=== PATIENT | female | born 1985 | race Caucasian/White ===

== ENCOUNTER 2017-04-16 10:39 | Day surgery (SDC) | payer OTHER ==
[~2017-04-16 10:39] MED LIST: Buffered Lidocaine 1% SYRIN* 5 ML/SYR SYRINGE ONE; Famotidine IV* 10 MG/ML 2 ML (20 mg) IV ONE; Famotidine IV* 10 MG/ML 2 ML (20 mg) ONE; Metoclopramide TAB* 10 MG ONE; Metoclopramide TAB* 10 MG PO ONE
[2017-04-16] MEDS ORDERED: Bupivacaine 0.5% W/EPI SDV* 30 ML VIAL ONE (12:12)
[2017-04-16] MEDS ORDERED: Midazolam* 1 MG/ML 5 ML VIAL (5 MG) ONE (12:16)
[2017-04-16] MEDS ORDERED: Cisatracurium* 2 MG/ML MDV 5 ML ONE (12:16)
[2017-04-16] MEDS ORDERED: Ketorolac INJ* 30 MG/ML 1 ML VIAL ONE (12:16)
[2017-04-16] MEDS ORDERED: fentaNYL* 50 MCG/ML 2 ML VIAL (100 MCG VIAL) ONE ×3 (12:16→14:29)
[2017-04-16] MEDS ORDERED: Lidocaine 2% PF * 5 ML VIAL ONE (12:16)
[2017-04-16] MEDS ORDERED: KETAMINE HCL* 50 MG/ML 10 ML VIAL ONE (12:16)
[2017-04-16] MEDS ORDERED: Dexamethasone IV* 4 MG/ML 1 ML (4 MG) ONE (12:16)
[2017-04-16] MEDS ORDERED: Ondansetron INJ* 2 MG/ML VIAL ONE (12:16)
[2017-04-16] MEDS ORDERED: Propofol* 10 MG/ML 20 ML BTL IV PUSH ONE (12:16)
[2017-04-16] MEDS ORDERED: Scopolamine 1.5 mg* PATCH ONE (12:37)
[2017-04-16] MEDS ORDERED: DiMENhydriNATE IV* 50 MG/ML VIAL IV PUSH PRN (13:32)
[2017-04-16] MEDS ORDERED: Ondansetron INJ* 2 MG/ML VIAL IV PRN (13:32)
[2017-04-16] MEDS ORDERED: Glycopyrrolate IV* 0.2 MG/ML 1 ML VIAL ONE (13:37)
[2017-04-16] MEDS ORDERED: Neostigmine Methylsulfate* 2 MG/2 ML SYRINGE ONE (13:37)
[2017-04-16] MEDS: fentaNYL* 50 MCG/ML 2 ML VIAL (100 MCG VIAL) IV PRN ×4 (13:59→15:02)
[2017-04-16] MEDS ORDERED: oxyCODONE/Acetamin 5/325 MG* TAB ONE ×2 (14:13→14:29)
[2017-04-16] MEDS: oxyCODONE/Acetamin 5/325 MG* TAB PO PRN ×2 (14:14→14:31)
[2017-04-16 15:57] VITALS: BP 142/89
[2017-04-16] MEDS ORDERED: Ondansetron ODT TAB* 4 MG ONE (16:20)
[2017-04-16] MEDS ORDERED: Ondansetron TAB* 4 MG PO ONE (16:28)
--- NOTE | 2017-04-17 04:13 | OP ---
OPERATIVE REPORT: DATE OF OPERATION: 04/16/17 DATE OF : 81 SURGEON: Bandar Dupont MD HAND I CUTTER: Stephanie Cole, certified nurse practitioner. ANESTHESIA: General anesthetic with endotracheal intubation. PRE-OP DIAGNOSIS: The patient desires permanent surgical sterilization. POST-OP DIAGNOSIS: The patient desires permanent surgical sterilization. OPERATIVE PROCEDURE: Bilateral laparoscopic tubal ligation with Filshie clips. ESTIMATED BLOOD LOSS: None. SPECIMENS: There were no specimens. FLUIDS: She received 1500 cc of IV crystalloid fluid. URINE OUTPUT: Clear. LAPAROSCOPIC FINDINGS: Revealed a normal uterus, bowel, and bladder with normal tubes and ovaries b ilaterally. COMPLICATIONS: There were no complications during this procedure. DESCRIPTION OF PROCEDURE: The patient was taken to the operating room, where she was identified. S he was placed on the operating table, where a general anesthetic with endotracheal intubation was ob tained without difficulty. She was then placed in the dorsal lithotomy position, prepped and draped in the normal sterile fashion. Attention was then brought to the patient's perineum, where the blad wu was catheterized with a Azul catheter and drained of urine. A speculum was inserted into the p atient's vagina and was unable to introduce a uterine manipulator due to stenotic cervix; therefore, a sponge stick was left in the vagina and the speculum was then removed. Attention was then charly t on to the patient's abdomen, where a 1-cm infraumbilical skin incision was made with a knife and c arried through to the underlying layer of fascia. The fascia was then grasped with the Hortencia clamp s, brought up through the incision, and incised with a knife and extended about 1 cm laterally with a Swati clamp. The Hortencia clamps on the fascia were then replaced with 0-Polysorb suture and throug h this incision, a 10-mm blunt trocar was introduced. The balloon and trocar was insufflated. The 0 Polysorb sutures were then attached to the trocar. The patient's abdomen was then insufflated wit h CO2 gas. A 10-mm laparoscope was inserted through this trocar and survey of the patient's intraab dominal and pelvic organs were noted as above. At this point, the patient was then placed on the sl ight Trendelenburg position. A second trocar was introduced 4 cm above the symphysis pubis. Throug h this trocar, a Filshie clip applicator was introduced and Filshie clips were then applied to the f allopian tubes ampullary portion bilaterally with good blanching of the fallopian tubes and good cov erage of circumferentially around the tube with the Filshie clip. At this point, all the instrument s were removed from the patient's abdomen as well as the gas was removed. The umbilical incision of the fascia was closed with 0-Polysorb suture in a running fashion. The skin were then closed with 4-0 Monocryl stitches subcuticularly. All the instruments were removed from the patient's vagina. The sponge, lap, and needle counts were correct x2. She was then transferred to the recovery room a aj in stable condition. [id number]/[facility] #: [id number]
[2017-04-17] MEDS ORDERED: Scopolamine 1.5 mg* PATCH TRANSDERM ONE (06:00)
[2017-04-20] MEDS ORDERED: Scopolomine PATCH Remove* 1 NOTE MISC PATCH OFF ONE (06:00)
== END 2017-04-16 16:55 | disposition home or self-care (01) ==
LOC: OR 10:39
PROVIDERS: ATTEND Obstetrics & Gynecology
DX: Z30.2 Encounter for sterilization (principal)
CPT/HCPCS: A9270-GY; J1100; J1885; J2250; J2405; J2704; J3010

== ENCOUNTER 2017-12-02 08:04 | Emergency (ER) | payer OTHER ==
[2017-12-02 08:15] VITALS: BP 145/89
[2017-12-02] MEDS ORDERED: Ondansetron ODT TAB* 4 MG PO ONE (08:40)
--- NOTE | 2017-12-02 08:44 | UC ---
Abdominal Pain Female HPI - HPI Summary HPI Summary: ONSET OF NAUSEA AND LEFT ARM TINGLING TODAY WHILE DRIVING TO WORK. DENIES CP, SOB, FEVER OR SWEATS. REPORTS SHE HAS HAD SOME PARESTHESIAS IN HER LEFT ARM BEFORE BUT TODAY WAS WORSE. - History of Current Complaint Chief Complaint: UCGeneralIllness Stated Complaint: LEFT ARM TINGLING AND WEAK Time Seen by Provider: 12/02/17 08:11 Hx Obtained From: Patient Hx Last Menstrual Period: 12/01/17 Onset/Duration: Sudden Onset, Lasting Hours, Still Present Timing: Constant Severity Initially: Moderate Severity Currently: Moderate Pain Intensity: 0 Pain Scale Used: 0-10 Numeric Radiates: No Aggravating Factor(s): Nothing Alleviating Factor(s): Nothing Associated Signs and Symptoms: Positive: Nausea. Negative: Fever, Vomiting, Diarrhea Allergies/Adverse Reactions: Allergies Allergy/AdvReac Type Severity Reaction Status Date / Time No Known Allergies Allergy Verified 12/02/17 08:12 PMH/Surg Hx/FS Hx/Imm Hx Cardiovascular History: Hypertension Respiratory History: Asthma Other History Of: Negative For: Anticoagulant Therapy - Surgical History Surgical History: None Surgery Procedure, Year, and Place: 2004 4 WISDOM TEETH EXTRACTED 'S OFFICE - Family History Known Family History: Positive: Cardiac Disease - Social History Alcohol Use: Occasionally Alcohol Amount: 1-2 GLASSES/DAY Substance Use Type: None Smoking Status (MU): Former Smoker Type: Cigarettes Amount Used/How Often: 1-2 CIGS/DAY 2 YRS, Have You Smoked in the Last Year: No When Did the Patient Quit Smoking/Using Tobacco: 2011 Review of Systems Constitutional: Negative Respiratory: Negative Cardiovascular: Negative Gastrointestinal: Nausea Genitourinary: Negative Neurological: Paresthesia All Other Systems Reviewed And Are Negative: Yes Physical Exam Triage Information Reviewed: Yes Appearance: Well-Appearing, No Pain Distress, Well-Nourished Vital Signs: Initial Vital Signs Temp 98.1 F 12/02/17 08:13 Pulse 84 12/02/17 08:13 Resp 16 12/02/17 08:13 BP 145/89 12/02/17 08:13 Pulse Ox 100 12/02/17 08:13 Vital Signs Reviewed: Yes Eyes: Positive: Conjunctiva Clear ENT: Positive: Hearing grossly normal, Pharynx normal, TMs normal Neck: Positive: Supple Respiratory Exam: Normal Cardiovascular Exam: Normal Abdomen Description: Positive: Soft Musculoskeletal: Positive: No Edema Neurological: Positive: Alert, Other: - POSITIVE TINEL AND PHALEN LEFT WRIST. PARESTHESIAS ALSO ELICITED WITH PERCUSSION LEFT ULNAR GROOVE Psychological: Positive: Age Appropriate Behavior Skin: Negative: rashes Diagnostics - EKG Cardiac Rate: NL Cardiac Rhythm: Sinus: Normal - EKG UNCHANGED FROM PREVIOUS Ectopy: None ST Segment: Normal Re-Evaluation - Re-Evaluation First Eval Re-Evaluation Time: 09:05 - SLIGHT IMPROVEMENT AFTER ZOFRAN 4MG Change: Improved Abd Pain Female Course/Dx - Differential Dx/Diagnosis Provider Diagnoses: 1. ACUTE NAUSEA. 2. LEFT CARPAL TUNNEL SYNDROME Discharge - Discharge Plan Condition: Stable Disposition: HOME Prescriptions: Ondansetron ODT TAB* [Zofran Odt TAB*] 4 mg PO Q6H PRN #20 tab.odt PRN Reason: Nausea/Vomiting Patient Education Materials: Acute Nausea and Vomiting (ED) Referrals: No Primary Care Phys,NOPCP [Primary Care Provider] - Additional Instructions: CARPAL TUNNEL SYNDROME: Your examination suggests carpal tunnel syndrome. This syndrome is due to pressure on a nerve in the wrist. The pressure may be due to an old injury, hard work using the wrist, or arthritis in the wrist. Typical symptoms are tingling, numbness, and pain in the palm, thumb, index and middle fingers, and one side of the ring finger. This problem often has to be repaired surgically. If the physician feels that your problem is of a more chronic nature, you will be referred to a specialist for further care. Sometimes a splint, ice packs, and antiinflammatory medication make the syndrome go away -- if symptoms have just started. You should call the doctor if pain increases, if you develop difficulty using the thumb or fingers, or if major swelling occurs. WEAR THE SPLINT AT NIGHT AND DURING THE DAY ABLE TO HELP REDUCE THE RISK OF FURTHER IRRITATION OF THE NERVE. NSAIDS NEEDED. CALL ORTHO IF YOU WOULD LIKE TO DISCUSS MORE AGGRESSIVE TREATMENT MEASURES. CALL THE NUMBER BELOW FOR ASSISTANCE IN ESTABLISHING WITH A PCP An additional resource available to assist in finding the appropriate physician for your health care needs is the [facility] ([facility]). You may contact them by calling [phone]. GO TO THE ER WITHOUT FAIL IF YOUR SYMPTOMS WORSEN.
== END 2017-12-02 09:15 | disposition home or self-care (01) ==
LOC: UCEAST 08:04
DX: R11.0 Nausea (principal); G56.02 Carpal tunnel syndrome, left upper limb; Z72.89 Other problems related to lifestyle; Z87.891 Personal history of nicotine dependence
CPT/HCPCS: 93005; 99213; A9270-GY; G0463

== ENCOUNTER 2018-01-09 11:51 | Emergency (ER) | payer OTHER ==
[2018-01-09 14:11] VITALS: BP 140/86
--- NOTE | 2018-01-09 14:25 | UC ---
Respiratory Complaint HPI - HPI Summary HPI Summary: Left lower rib pain hurts to breath no trauma, no illness, no fever,cough or sputum--began last night, diarrhea is not a concern for the patient as at her baseline she has 5 watery/soft stools daily and is currently teated with probiotic for IBS - History of Current Complaint Chief Complaint: UCAbdominalPain Stated Complaint: SOB, PAIN IN SIDE Time Seen by Provider: 01/09/18 14:16 Hx Obtained From: Patient Hx Last Menstrual Period: 12/27/17 ?: No Onset/Duration: Sudden Onset Timing: Constant Severity Initially: Moderate Severity Currently: Moderate Pain Intensity: 6 Pain Scale Used: 0-10 Numeric Aggravating Factors: Other - cough and deep breath Alleviating Factors: Nothing - Allergies/Home Medications Allergies/Adverse Reactions: Allergies Allergy/AdvReac Type Severity Reaction Status Date / Time No Known Allergies Allergy Verified 01/09/18 11:56 PMH/Surg Hx/FS Hx/Imm Hx Previously Healthy: Yes GI/ History: Other Other GI/ History: IBS Other History Of: Negative For: Anticoagulant Therapy - Surgical History Surgical History: Yes Surgery Procedure, Year, and Place: 2004 4 WISDOM TEETH EXTRACTED 'S OFFICE - Family History Known Family History: Positive: Cardiac Disease - Social History Occupation: Employed Full-time Lives: With Family Alcohol Use: Occasionally Alcohol Amount: 1-2 GLASSES/DAY Substance Use Type: None Smoking Status (MU): Former Smoker Type: Cigarettes Amount Used/How Often: 1-2 CIGS/DAY 2 YRS, Have You Smoked in the Last Year: No When Did the Patient Quit Smoking/Using Tobacco: 2011 Review of Systems Constitutional: Negative Skin: Negative Eyes: Negative ENT: Negative Respiratory: Cough Cardiovascular: Negative Gastrointestinal: Negative Genitourinary: Negative Motor: Negative Neurovascular: Negative Musculoskeletal: Arthralgia - left lower rib pain Neurological: Negative Psychological: Negative Is Patient Immunocompromised?: No All Other Systems Reviewed And Are Negative: Yes Physical Exam Triage Information Reviewed: Yes Appearance: Well-Appearing, No Pain Distress, Well-Nourished Vital Signs: Initial Vital Signs Temp 98 F 01/09/18 11:58 Pulse 56 01/09/18 11:58 Resp 16 01/09/18 11:58 BP 143/85 01/09/18 11:58 Pulse Ox 99 01/09/18 11:58 Vital Signs Reviewed: Yes Eye Exam: Normal Eyes: Positive: Conjunctiva Clear ENT Exam: Normal ENT: Positive: Normal ENT inspection, Hearing grossly normal, Pharynx normal, TMs normal. Negative: Nasal congestion, Nasal drainage, Tonsillar swelling, Tonsillar exudate, Trismus, Muffled voice, Hoarse voice, Dental tenderness, Sinus tenderness, Uvula midline Dental Exam: Normal Neck exam: Normal Neck: Positive: Supple, Nontender Respiratory Exam: Normal Respiratory: Positive: Lungs clear, Normal breath sounds, No respiratory distress, No accessory muscle use, Other: - left lower anterior ribs tender to palpation Cardiovascular Exam: Normal Cardiovascular: Positive: RRR, No Murmur, Pulses Normal, Brisk Capillary Refill Abdominal Exam: Normal Musculoskeletal Exam: Normal Neurological Exam: Normal Psychological Exam: Normal Skin Exam: Normal UC Diagnostic Evaluation - Laboratory O2 Sat by Pulse Oximetry: 98 Respiratory Course/Dx - Course Course Of Treatment: Nsaids, increase fluids, follow with pcp - Differential Dx/Diagnosis Provider Diagnoses: Chest wall pain Discharge - Discharge Plan Condition: Stable Disposition: HOME Prescriptions: Ibuprofen TAB* [Motrin TAB* 600 MG] 600 mg PO Q6H PRN #40 tab PRN Reason: pain Patient Education Materials: Costochondritis (ED), Hypertension (ED) [place] [facility] [place] [facility] [place]] - 1 Week
== END 2018-01-09 15:05 | disposition home or self-care (01) ==
LOC: UCEAST 11:51
DX: R07.89 Other chest pain (principal); F17.210 Nicotine dependence, cigarettes, uncomplicated
CPT/HCPCS: 81003; 99212; G0463

== ENCOUNTER 2019-02-15 10:25 | Emergency (ER) | payer OTHER ==
--- NOTE | 2019-02-15 11:20 | UC ---
General HPI - HPI Summary HPI Summary: 33-year-old woman comes in with a chief complaint of fatigue for one week. She had an elevated blood pressure yesterday with the systolics and 140 range. She' s been having a sore throat. No fevers. No other infectious symptoms. Overnight she started with some chest pressure. She's not had any calf pain or calf tenderness. One week ago she was on an airplane flight from [place]. Patient did not have any calf pain at that time no prior history of blood clots or DVTs no family history of blood clots or DVTs. She's had elevated blood pressures in the past but is not being treated with medicines. She is not on any control hormones. She is not a smoker. No history of thyroid problems. She has had anemia in the past. Chest pressure is described as moderate. She's not nauseous or sweaty. She has feel slightly short of breath. - History of Current Complaint Chief Complaint: UCChestPain Stated Complaint: bp/chest pain Time Seen by Provider: 02/15/19 10:30 Hx Last Menstrual Period: current Pain Intensity: 0 - Allergy/Home Medications Allergies/Adverse Reactions: Allergies Allergy/AdvReac Type Severity Reaction Status Date / Time No Known Allergies Allergy Verified 02/15/19 10:33 Home Medications: Home Medications Sertraline* [Zoloft*] 50 mg PO DAILY 02/15/19 [History Confirmed 02/15/19] PMH/Surg Hx/FS Hx/Imm Hx Previously Healthy: Yes Other History Of: Negative For: Anticoagulant Therapy - Surgical History Surgical History: Yes Surgery Procedure, Year, and Place: 2004 4 WISDOM TEETH EXTRACTED. tubal - Family History Known Family History: Positive: Cardiac Disease, Other - NO FHX OF DVT/PE. NO RELATIVES WITH OH < 50 YO Negative: Blood Disorder - Social History Alcohol Use: Daily Alcohol Amount: glass of wine/day Substance Use Type: None Smoking Status (MU): Former Smoker Type: Cigarettes Amount Used/How Often: 1-2 CIGS/DAY 2 YRS, Have You Smoked in the Last Year: No When Did the Patient Quit Smoking/Using Tobacco: 2011 Review of Systems All Other Systems Reviewed And Are Negative: Yes Constitutional: Positive: Fatigue Skin: Positive: Negative Eyes: Positive: Negative ENT: Positive: Sore Throat. Negative: Sinus Congestion Respiratory: Positive: Shortness Of Breath Cardiovascular: Positive: Chest Pain Gastrointestinal: Positive: Negative Motor: Positive: Negative Neurovascular: Positive: Negative Musculoskeletal: Positive: Negative Neurological: Positive: Negative Psychological: Positive: Negative Is Patient Immunocompromised?: No Physical Exam Triage Information Reviewed: Yes Appearance: Well-Appearing, No Pain Distress, Well-Nourished Vital Signs: Initial Vital Signs Temp 98.1 F 02/15/19 10:27 Pulse 62 02/15/19 10:27 Resp 16 02/15/19 10:27 BP 153/95 02/15/19 10:27 Pulse Ox 100 02/15/19 10:27 Vital Signs Reviewed: Yes Eye Exam: Normal Eyes: Positive: Conjunctiva Clear ENT: Positive: Pharynx normal, TMs normal Neck exam: Normal Neck: Positive: Supple Respiratory: Positive: Lungs clear, Normal breath sounds, No respiratory distress Cardiovascular: Positive: RRR Abdomen Description: Positive: Nontender, Soft Bowel Sounds: Positive: Present Musculoskeletal Exam: Normal Musculoskeletal: Positive: Strength Intact, ROM Intact, No Edema, Other: - NO CALF TENDERNESS Neurological Exam: Normal Neurological: Positive: Alert, Muscle Tone Normal Psychological Exam: Normal Psychological: Positive: Normal Response To Family, Age Appropriate Behavior Skin Exam: Normal Diagnostics - EKG Cardiac Rate: NL - AT 1024 Cardiac Rhythm: Sinus: Normal - 65BPM Ectopy: None ST Segment: Normal Course/Dx - Course Course Of Treatment: Patient Name: DREW NEAL Medical Record#: [id number] Ordering Physician: Noah Arambula MD Acct.#: [id number] : 1985 Age: 33 Sex: F Location: [facility] Exam Date: 02/15/19 1114 ADM Status: REG ER Order Information: CHEST PA LAT 2 S Accession Number: [id number] CPT: 28308 Indication: Shortness of breath, chest pain. 2 views of the chest including dual energy PA views demonstrates no mediastinal shift. Heart is of normal size and configuration. Lung walden are clear. No changes noted since October 07, 2013. IMPRESSION: No active cardiopulmonary disease is noted. <Electronically signed by Haylee Oreilly MD in OV> 02/15/19 1560 I discussed the EKG and chest x-ray with the patient and her . Patient is low risk for PE given her perk score of 0; Age <50 years Heart rate <100 beats/minute Oxyhemoglobin saturation >95 percent No hemoptysis No estrogen use No prior DVT or PE No unilateral leg swelling No surgery/trauma requiring hospitalization within the prior four weeks I do not see any ischemic changes on EKG. Overall plan is checking blood work here CBC CMP TSH and Monospot for fatigue. Patient's going to check her blood pressure at home and Follow-up with primary care doctor. I let her know if she has any worsening of her symptoms of chest pain shorts of breath fevers she should get reevaluated again in the emergency department. - Diagnoses Provider Diagnosis: Hypertension, Chest pain, Fatigue Discharge - Sign-Out/Discharge Documenting (check all that apply): Patient Departure All imaging exams completed and their final reports reviewed: Yes - Discharge Plan Condition: Stable Disposition: HOME Patient Education Materials: Chest Pain (ED), Fatigue (ED), Hypertension (ED) Referrals: Latonia Gutierrez MD [Primary Care Provider] - Additional Instructions: FOLLOW UP WITH YOUR DOCTOR. GO TO THE EMERGENCY DEPARTMENT FOR ANY WORSENING OF YOUR CONDITION; CHEST PAIN, SHORTNESS OF BREATH, YOU FEEL ILL OR QUESTIONS OR CONCERNS. - Billing Disposition and Condition Condition: STABLE Disposition: Home
[2019-02-15 11:55] VITALS: BP 146/84
[2019-02-15 16:46] LABS: ABS Basophils 0 10^3/ul (0-0.2); ABS Eosinophils 0.2 10^3/ul (0-0.6); ABS Lymphocytes 2.1 10^3/ul (1.0-4.8); ABS Monocytes 0.5 10^3/ul (0-0.8); ABS Neutrophils 3.9 10^3/ul (1.5-7.7); ABS Nucleated RBC 0 10^3/ul; Eosinophil % 3.5 %; Hematocrit 43 % (33-41); Hemoglobin 14.6 g/dL (12.0-16.0); Lymphocyte % 30.8 %; Mean Corpuscular HGB Conc 34 g/dL (31-36); Mean Corpuscular Hemoglobin 31 pg (27-31); Mean Corpuscular Volume 91 fL (80-97); Nucleated Red Blood Cells % 0; Platelet Count 201 10^3/uL (150-450); Red Blood Count 4.74 10^6 /uL (3.70-4.87); Red Cell Distribution Width 12 % (10.5-15); White Blood Count 6.7 10^3/uL (3.5-10.8)
[2019-02-15 16:54] LABS: Albumin 4.7 g/dL (3.2-5.2); Calcium 9.5 mg/dL (8.6-10.3); Total Bilirubin 0.9 mg/dL (0.2-1.0)
[2019-02-15 16:59] LABS: BUN/Creatinine Ratio 24.6 (8-20); EGFR African American 125.5 (>60); EGFR Non-African American 103.7 (>60); Globulin 2.3 g/dL (2-4)
[2019-02-15 17:19] LABS: TSH (Thyroid Stimulating Horm) 1.38 mcIU/mL (0.34-5.60)
[2019-02-17 16:40] LABS: EBV Capsid Ag IgG Ab Positive (Negative); EBV Capsid Ag IgM Ab Positive (Negative); Epstein-Barr Nuclear Antigen Positive (Negative)
--- NOTE | 2019-02-18 08:04 | UC ---
- Progress Note Progress Note: Mononucleosis (mono) studies suggest recent infection or more likely reactivation of mono. This is a virus. No antibiotics are indicated. Recommend no physical sports for one month from onset of symptoms. If still having symptoms follow up with your primary or return to urgent care for further evaluation. Course/Dx - Diagnoses Provider Diagnoses: Hypertension, Chest pain, Fatigue Discharge - Sign-Out/Discharge Documenting (check all that apply): Post-Discharge Follow Up All imaging exams completed and their final reports reviewed: No Studies - Discharge Plan Condition: Stable Disposition: HOME Patient Education Materials: Chest Pain (ED), Hypertension (ED), Fatigue (ED) Referrals: Latonia Gutierrez MD [Primary Care Provider] - Additional Instructions: FOLLOW UP WITH YOUR DOCTOR. GO TO THE EMERGENCY DEPARTMENT FOR ANY WORSENING OF YOUR CONDITION; CHEST PAIN, SHORTNESS OF BREATH, YOU FEEL ILL OR QUESTIONS OR CONCERNS. - Billing Disposition and Condition Condition: STABLE Disposition: Home
== END 2019-02-15 12:29 | disposition home or self-care (01) ==
LOC: UCEAST 10:25
DX: I10 Essential (primary) hypertension (principal); R07.9 Chest pain, unspecified; R53.83 Other fatigue; J02.9 Acute pharyngitis, unspecified; R06.02 Shortness of breath; Z87.891 Personal history of nicotine dependence
CPT/HCPCS: 36415; 71046; 80053; 84443; 85025; 86308; 86664; 86665; 87651; 93005; 99211; G0463

== ENCOUNTER 2019-11-25 07:34 | Emergency (ER) | payer OTHER ==
[2019-11-25 08:08] VITALS: BP 180/110
--- NOTE | 2019-11-25 08:15 | UC ---
General HPI - HPI Summary HPI Summary: 34 yo female c/o last couple weeks feeling bad, bp increase and recently c/o discomfort in chest. Discomfort is fairly constant, unclear positional. No sob. No fever / chills. No p/d/w. No vis / aud changes. No estes. - History of Current Complaint Chief Complaint: UCChestPain Stated Complaint: HIGH BLOOD PRESSURE Time Seen by Provider: 11/25/19 08:03 Hx Obtained From: Patient Hx Last Menstrual Period: current Pain Intensity: 3 - Allergy/Home Medications Allergies/Adverse Reactions: Allergies Allergy/AdvReac Type Severity Reaction Status Date / Time No Known Allergies Allergy Verified 11/25/19 08:57 PMH/Surg Hx/FS Hx/Imm Hx Previously Healthy: Yes Other History Of: Negative For: Anticoagulant Therapy - Surgical History Surgical History: Yes Surgery Procedure, Year, and Place: 2004 4 WISDOM TEETH EXTRACTED. tubal - Family History Known Family History: Positive: Cardiac Disease, Other - NO FHX OF DVT/PE. NO RELATIVES WITH [place] < 50 YO Negative: Blood Disorder - Social History Alcohol Use: Daily Alcohol Amount: glass of wine/day Substance Use Type: None Smoking Status (MU): Former Smoker Type: Cigarettes Amount Used/How Often: 1-2 CIGS/DAY 2 YRS, Have You Smoked in the Last Year: No When Did the Patient Quit Smoking/Using Tobacco: 2011 Review of Systems All Other Systems Reviewed And Are Negative: Yes Constitutional: Positive: Negative Skin: Positive: Negative Eyes: Positive: Negative ENT: Positive: Negative Respiratory: Positive: Other - see hpi Cardiovascular: Positive: Other - see hpi Gastrointestinal: Positive: Negative Genitourinary: Positive: Negative Motor: Positive: Negative Neurovascular: Positive: Negative Musculoskeletal: Positive: Negative Neurological: Positive: Negative Psychological: Positive: Negative Is Patient Immunocompromised?: No Physical Exam Triage Information Reviewed: Yes Appearance: Well-Nourished, Other: - looks uncomfortable but nad Vital Signs: Initial Vital Signs Temp 98.7 F 11/25/19 07:46 Pulse 59 11/25/19 07:46 Resp 16 11/25/19 07:46 BP 180/110 11/25/19 07:46 Pulse Ox 100 11/25/19 07:46 Vital Signs Reviewed: Yes Eye Exam: Normal ENT Exam: Normal Neck exam: Normal Respiratory Exam: Other - tender ant chest Respiratory: Positive: Lungs clear, Normal breath sounds, No respiratory distress, No accessory muscle use Cardiovascular Exam: Normal Cardiovascular: Positive: RRR, No Murmur, Pulses Normal, Brisk Capillary Refill Abdominal Exam: Normal Abdomen Description: Positive: Nontender Musculoskeletal Exam: Normal Neurological Exam: Normal - grossly nonfocal Psychological Exam: Normal - nad Skin Exam: Normal - no visible or reported rash Course/Dx - Course Course Of Treatment: Reviewed ekg with pt. Valeri old for comp. Encourage eval / tx ED. She will go to the ED but does not want EMS. She will go to ED pov. EKG SR at 55 bpm. Inverted T's leads. ? wander 2,3,f (?) - Diagnoses Provider Diagnosis: Chest pain, High blood pressure Discharge ED - Sign-Out/Discharge Documenting (check all that apply): Patient Departure All imaging exams completed and their final reports reviewed: No Studies - Discharge Plan Condition: Guarded Disposition: HOME-RECOMMEND TO ED Patient Education Materials: Chest Pain (ED), Acute Abdominal Pain (ED) Referrals: Latonia Guteirrez MD [Primary Care Provider] - Additional Instructions: Please go directly to the Emergency Department. Stop and call 911 for any problems en route. - Billing Disposition and Condition Condition: GUARDED Disposition: Home-Recommend to ED
[2019-11-25] MEDS ORDERED: Aspirin 81 mg CHEW TAB* 81 MG TAB.CHEW ONE (08:16)
[2019-11-25] MEDS ORDERED: Aspirin 81 mg CHEW TAB* 81 MG TAB.CHEW PO SCH (09:00)
== END 2019-11-25 08:23 | disposition home health service (06) ==
LOC: UCEAST 07:34
DX: R07.89 Other chest pain (principal); R03.0 Elevated blood-pressure reading, without diagnosis of hypertension; Z82.49 Family history of ischemic heart disease and other diseases of the circulatory system; Z87.891 Personal history of nicotine dependence
CPT/HCPCS: 99212; A9270-GY; G0463

== ENCOUNTER 2019-11-25 08:36 | Emergency (ER) | payer OTHER ==
--- NOTE | 2019-11-25 09:06 | ED ---
Complex/Multi-Sys Presentation - HPI Summary HPI Summary: Pt is a 34 y/o F presenting to the ED with a chief complaint of a multi-system presentation. Pt states shes been ill with an upper respiratory infection over the past week, characterized by a cough and nasal congestion. She monitors her BP at home and notes it has not gone down and is in the 140s systolic. She notes nausea, abd pain, headaches, and decreased appetite. Today, she developed pain under her L rib cage toward the L lateral side of her chest. She denies fever, vomiting, and burning with urination. Hx IBS, HTN, and tubal ligation. FHx gallstones and cardiac dz. - History Of Current Complaint Chief Complaint: EDAbdPain Time Seen by Provider: 11/25/19 08:46 Hx Obtained From: Patient Onset/Duration: Gradual Onset, Lasting Days, Still Present Timing: Constant, Days Severity Currently: Mild Severity Initially: Moderate Location: Pain At: - rib (L) Associated Signs And Symptoms: Positive: Headache, Cough, Chest Pain, Nausea, Abdominal Pain, Decreased Oral Intake. Negative: Vomiting, Fever - Allergies/Home Medications Allergies/Adverse Reactions: Allergies Allergy/AdvReac Type Severity Reaction Status Date / Time No Known Allergies Allergy Verified 11/25/19 08:57 Home Medications: Home Medications Chlorpheniramine/Dextromethorp [Coricidin Hbp Cough & Cold Tab] 1 each PO DAILY PRN 11/25/19 [History Confirmed 11/25/19] Cholecalciferol TAB* [Vitamin D TAB*] 1,000 unit PO DAILY 11/25/19 [History Confirmed 11/25/19] Cyanocobalamin TAB* [Vitamin B12 TAB*] 500 mcg PO DAILY 11/25/19 [History Confirmed 11/25/19] PMH/Surg Hx/FS Hx/Imm Hx Previously Healthy: Yes Endocrine/Hematology History: Denies: Hx Anticoagulant Therapy, Hx Diabetes, Hx Thyroid Disease Cardiovascular History: Reports: Hx Hypertension - NOT TREATED Denies: Hx Pacemaker/ICD Respiratory History: Reports: Hx Asthma - CHILD, NONE IN ADULT YEARS Denies: Hx Chronic Obstructive Pulmonary Disease (COPD) GI History: Reports: Hx Gastroesophageal Reflux Disease - NO MEDS, TRIES TO CONTROL WITH DIET CHANGES, Hx Irritable Bowel Denies: Hx Ulcer Sensory History: Reports: Hx Contacts or Glasses - GLASSES DAY OF SURGERY Denies: Hx Hearing Aid Opthamlomology History: Reports: Hx Contacts or Glasses - GLASSES DAY OF SURGERY Neurological History: Reports: Hx Migraine - THINKS CAUSED BY HER CONTROL , HAD MIGRAINE THIS AM Psychiatric History: Reports: Hx Panic Disorder - ANXIETY - Surgical History Surgery Procedure, Year, and Place: 2004 4 WISDOM TEETH EXTRACTED. tubal Hx Anesthesia Reactions: No Infectious Disease History: No Infectious Disease History: Denies: Hx Clostridium Difficile, Hx Hepatitis, Hx Human Immunodeficiency Virus (HIV), Hx of Known/Suspected MRSA, Hx Shingles, Hx Tuberculosis, Hx Known/ Suspected VRE, Hx Known/Suspected VRSA, History Other Infectious Disease, Traveled Outside the [place] in Last 30 Days - Family History Known Family History: Positive: Cardiac Disease, Other - NO FHX OF DVT/PE. NO RELATIVES WITH CO < 50 YO. pos: gallstones Negative: Blood Disorder - Social History Alcohol Use: Daily Alcohol Amount: glass of wine/day Hx Substance Use: No Substance Use Type: Reports: None Hx Tobacco Use: Yes Smoking Status (MU): Former Smoker Type: Cigarettes Amount Used/How Often: 1-2 CIGS/DAY 2 YRS, Have You Smoked in the Last Year: No Review of Systems Positive: Other - decreased appetite. Negative: Fever Positive: Nasal Discharge Positive: Chest Pain Positive: Cough Positive: Abdominal Pain, Nausea. Negative: Vomiting Negative: burning Positive: Headache All Other Systems Reviewed And Are Negative: Yes Physical Exam - Summary Physical Exam Summary: Constitutional: Well-developed, Well-nourished, Alert. (-) Distressed Skin: Warm, Dry HENT: Normocephalic; Atraumatic Eyes: Conjunctiva normal Neck: Musculoskeletal ROM normal neck. (-) JVD, (-) Stridor, (-) Tracheal deviation Cardio: Rhythm regular, rate normal, Heart sounds normal; Intact distal pulses; The pedal pulses are 2+ and symmetric. Radial pulses are 2+ and symmetric. (-) Murmur Pulmonary/Chest wall: Effort normal. (-) Respiratory distress, (-) Wheezes, (-) Rales Abd: Soft, (-) tenderness, (-) Distension, (-) Guarding, (-) Rebound Musculoskeletal: (-) Edema Lymph: (-) Cervical adenopathy Neuro: Alert, Oriented x3 Psych: Mood and affect Normal Triage Information Reviewed: Yes Vital Signs On Initial Exam: Initial Vitals Temp Pulse Resp BP Pulse Ox 98.4 F 65 18 173/104 99 11/25/19 08:38 11/25/19 08:38 11/25/19 08:38 11/25/19 08:38 11/25/19 08:38 Vital Signs Reviewed: Yes Procedures - Sedation Patient Received Moderate/Deep Sedation with Procedure: No Diagnostics - Vital Signs Vital Signs Temp Pulse Resp BP Pulse Ox 11/25/19 08:38 98.4 F 65 18 173/104 99 - Laboratory Result Diagrams: 11/25/19 09:01 11/25/19 09:01 Lab Statement: Any lab studies that have been ordered have been reviewed, and results considered in the medical decision making process. - Radiology CXR Radiology Interpretation Completed By: Radiologist Summary of Radiographic Findings: No acute cardiopulmonary process by radiograph. ED physician has reviewed this report. - Ultrasound Abd US Ultrasound Interpretation Completed By: Radiologist Summary of Ultrasound Findings: NO ACUTE SONOGRAPHIC PATHOLOGY OF THE VISUALIZED PORTION OF THE ABDOMEN. ED physician has reviewed this report. - EKG 0848 Cardiac Rate: Bradycardia - 52bpm EKG Rhythm: Sinus Bradycardia ST Segment: Normal Ectopy: None Summary of EKG Findings: EKG at 0848 shows sinus bradycardia at 56bpm without any ischemic changes. Dr. Black has reviewed and interpreted this EKG. Re-Evaluation - Re-Evaluation 1st re-eval Re-Evaluation Time: 12:40 Change: Improved Comment: Pt is feeling better and is agreeable to discharge. Instructed to f/u with PCP in 1-2 days. Complex Multi-Symp Course/Dx Course Of Treatment: Pt is a 34 y/o F presenting to the ED with a chief complaint of a multi-system presentation. She reports URI characterized by cough and nasal congestion. She also reports high BP, nausea, abd pain, headaches, and decreased appetite. Today, she developed pain under her L rib cage toward the L lateral side of her chest. She denies fever, vomiting, and burning with urination. Pt's physical exam is nml. EKG at 0848 shows sinus bradycardia at 56bpm without any ischemic changes. Dr. Black has reviewed and interpreted this EKG. Abd US shows: NO ACUTE SONOGRAPHIC PATHOLOGY OF THE VISUALIZED PORTION OF THE ABDOMEN. CXR shows: No acute cardiopulmonary process by radiograph. As of 1240, pt is feeling better and is agreeable to discharge. Instructed to f/u with PCP in 1-2 days. Dx abd pain. - Diagnoses Provider Diagnoses: Abdominal pain Discharge ED - Sign-Out/Discharge Documenting (check all that apply): Patient Departure - Discharge Plan Condition: Stable Disposition: HOME Patient Education Materials: Acute Abdominal Pain (ED) Referrals: Latonia Gutierrez MD [Primary Care Provider] - Additional Instructions: Follow up with your primary care provider within the next 1-2 days. Return to the emergency department with any new or worsening symptoms. - Attestation Statements Document Initiated by Scribe: Yes Documenting Scribe: Margarita Cameron Provider For Whom Karinaibe is Documenting (Include Credential): Faustino Black DO. Scribe Attestation: Margarita Zelaya, lamed for Faustino Black DO. on 11/25/19 at 1240. Status of Scribe Document: Ready
[2019-11-25 09:10] LABS: ABS Eosinophils 0.1 10^3/ul (0-0.6); ABS Lymphocytes 1.7 10^3/ul (1.0-4.8); ABS Monocytes 0.6 10^3/ul (0-0.8); Eosinophil % 1.8 %; Hematocrit 39 % (35-47); Hemoglobin 13.6 g/dL (12.0-16.0); Lymphocyte % 30.8 %; Mean Corpuscular HGB Conc 35 g/dL (31-36); Mean Corpuscular Hemoglobin 31 pg (27-31); Mean Corpuscular Volume 89 fL (80-97); Mean Platelet Volume 9.3 fL (7.4-10.4); Platelet Count 180 10^3/uL (150-450); Red Blood Count 4.42 10^6 /uL (3.70-4.87); Red Cell Distribution Width 12 % (10-15); White Blood Count 5.4 10^3/uL (3.5-10.8)
[2019-11-25] MEDS: hydrALAZINE IV* 20 MG/ML VIAL IV SLOW PU ONE (09:12)
[2019-11-25] MEDS: NS 0.9% 1000 ML** 1,000 ML IV SCH (09:12)
[2019-11-25 09:26] LABS: Albumin 4.2 g/dL (3.2-5.2); Albumin/Globulin Ratio 1.8 (1-3); BUN/Creatinine Ratio 10.1 (8-20); Calcium 9.1 mg/dL (8.6-10.3); EGFR African American 116.5 (>60); EGFR Non-African American 96.3 (>60); Globulin 2.4 g/dL (2-4); Total Bilirubin 0.7 mg/dL (0.2-1.0); Total Protein 6.6 g/dL (6.4-8.9)
[2019-11-25] MEDS: Al Hydrox/Mg Hydrox/Simet LIQ* 30 ML UDC PO ONE (10:16)
[2019-11-25] MEDS: Lidocaine 2% VISCOUS* 15 ML UDC PO ONE (10:17)
[2019-11-25] MEDS: Ketorolac INJ* 30 MG/ML 1 ML VIAL IV PUSH ONE (10:23)
[2019-11-25 13:04] VITALS: BP 136/84
== END 2019-11-25 13:04 | disposition home or self-care (01) ==
LOC: ED 08:36
DX: R10.9 Unspecified abdominal pain (principal); I10 Essential (primary) hypertension; K21.9 Gastro-esophageal reflux disease without esophagitis; F41.9 Anxiety disorder, unspecified; Z87.891 Personal history of nicotine dependence; Z98.51 Tubal ligation status
CPT/HCPCS: 36415; 71046; 76700; 80053; 83690; 84484; 85025; 93005; 96361; 96374; 99284; A9270-GY; J0360; J1885